=== PATIENT | female | born 1965 | race Caucasian/White ===

== ENCOUNTER 2017-08-12 10:22 | Day surgery (SDC) | payer MEDICARE, MEDICAID ==
[2017-08-11 12:39] VITALS: BMI 23.3
[~2017-08-12 10:22] MED LIST: Ketorolac Tromethamine 30 MG/ML VIAL ONE; PROPOFOL 200 MG/20 ML VIAL ONE
[2017-08-12] MEDS ORDERED: Ketorolac Tromethamine 30 MG/ML VIAL ONE (14:39)
--- NOTE | 2017-08-12 14:50 | OP ---
DATE OF PROCEDURE: 08/12/2017 PROCEDURE: Colonoscopy. DESCRIPTION OF PROCEDURE: After the risks and benefits of the procedure were explained to the patien t's surrogate including risks of bleeding, infection, perforation, bleeding, or reaction to anesthesi a and/or pain, informed consent was obtained. The patient was then taken to the endoscopy suite wher e deep sedation was administered via propofol and anesthesia support, the standard colonoscope was th en introduced into the rectum and advanced to the cecum with the findings listed below. The quality of the prep was good. The patient tolerated the procedure well with no immediate perioperative compl ications. LEXUS: Normal digital rectal examination with no evidence of hemorrhoids. COLON FINDINGS: The colonic mucosa exhibited a darker colored appearance in a mosaic pattern alejandra to the leopard skin appearance and was seen throughout the entire colon. The colon also exhibited sign ificant dilation throughout the entire colon with insufflation of air. Otherwise, the mucosa of the colon appeared normal within the cecum, appendiceal orifice, and ileocecal valve. Normal appearing m ucosa was seen in the ascending, transverse, descending, sigmoid colon, and rectum. On rectal retrof lexion, small internal hemorrhoids were also noted. IMPRESSION: 1. Small internal hemorrhoids. 2. Diffuse mild to moderate melanosis coli. 3. Significant dilation of the entire colon consistent with prior history of significant constipatio n. RECOMMENDATIONS: 1. Continue with current bowel regimen for severe chronic constipation. 2. We would repeat screening colonoscopy in 10 years given negative findings today and the lack of f amily history of colon polyps or colon cancer. 3. We would recommend higher fiber diet given her history of severe constipation. 4. Follow up in the GI clinic as needed.
== END 2017-08-12 15:25 | disposition short-term general hospital (02) ==
LOC: SDC 10:22
PROVIDERS: ATTEND Internal Medicine
PROC: 0DJD8ZZ Inspection of Lower Intestinal Tract, Via Natural or Artificial Opening Endoscopic (ICD-10-PCS; principal; 2017-08-12)
DX: K59.09 Other constipation (principal); K64.8 Other hemorrhoids; K63.89 Other specified diseases of intestine; F31.30 Bipolar disorder, current episode depressed, mild or moderate severity, unspecified; F43.10 Post-traumatic stress disorder, unspecified; R13.12 Dysphagia, oropharyngeal phase; E03.9 Hypothyroidism, unspecified; M17.31 Unilateral post-traumatic osteoarthritis, right knee; M24.561 Contracture, right knee; Z79.52 Long term (current) use of systemic steroids; Z79.899 Other long term (current) drug therapy; Z88.6 Allergy status to analgesic agent; Z88.8 Allergy status to other drugs, medicaments and biological substances
CPT/HCPCS: 96374; J1885; J2704

== ENCOUNTER 2017-09-08 09:24 | Outpatient (CLI) | payer MEDICARE, MEDICAID ==
--- NOTE | 2017-09-10 16:29 | RAD ---
MODIFIED BARIUM SWALLOW 09/08/17 HISTORY: Unspecified dysphagia, feeding difficulties. FINDINGS: A modified barium swallow is performed by a member of the Division of Speech Pathology and selected i mages from that study were provided for interpretation. Provided imaging demonstrates multiple bouts of penetration. No evidence for aspiration seen. IMPRESSION: Penetration. Please see speech pathologist report for full detail and feeding recommendations. POS: [id number]
== END 2017-09-08 09:25 | disposition home or self-care (01) ==
PROVIDERS: ATTEND Preventive Medicine Medical Toxicology
DX: R13.10 Dysphagia, unspecified (principal); R63.3 Feeding difficulties; R94.8 Abnormal results of function studies of other organs and systems
CPT/HCPCS: 74230; G8996-GN-CI; G8997-GN-CI; G8998-GN-CI